=== PATIENT | male | born 1945 | race Caucasian/White ===

== ENCOUNTER → 2017-09-10 | Day surgery (SDC) | payer OTHER ==
[~2017-09-10] MED LIST: GLUC100013 PO; LACTATED RINGER'S 1000 ML INJ 1,000 ML ONE; MIDAZOLAM HCL 2 MG/2 ML VIAL ONE; MORPHINE SULFATE 2 MG/ML SYRINGE ONE; ONDANSETRON HCL 4 MG/2 ML VIAL IV PUSH ONE; PROPOFOL 200 MG/20 ML AMP IV ONE; VITA10007 PO; ceFAZolin INJ 1,000 MG VIAL ONE
--- NOTE | 2017-09-10 11:19 | TN ---
cc: Ronni Peralta MD DATE OF SURGERY: 09/10/2017 DATE OF SURGERY: 09/10/2017 ATTENDING PHYSICIAN/SURGEON: MD Kathryn PREOPERATIVE DIAGNOSIS: Left knee torn medial meniscus. POSTOPERATIVE DIAGNOSIS: Left knee torn medial meniscus. PROCEDURE PERFORMED: Left knee arthroscopy, partial medial meniscectomy. PROCEDURE IN DETAIL: Informed consent was obtained. The patient was taken to the operating room and placed in the supine position on the operating table, administered general anesthesia by Dr. Leal of the Anesthesia Department. The patient had been given 1 gram of Ancef prior to the initiation of the operative procedure. The left leg had a tourniquet applied to the thigh and was prepped with Betadine soap followed by Betadine paint. Draping commenced with sterile towels, sterile U-drape, stockinette was placed over the foot and calf, an extremity drape was applied, Coban was applied over the stockinette. The leg was elevated. The table was elevated to its maximum height. A timeout was held and confirmed. At that time, the tourniquet was inflated to 300 mmHg. The leg was allowed to flex over the side of the operating table. An 18-gauge spinal needle was placed in the region of the lateral infrapatellar portal. This region was infiltrated and 4 mL of 0.25% Marcaine with epinephrine. Infiltration was also performed into the medial infrapatellar portal and the transpatellar tendon portal. Small incisions were made with the 11 blade in the region of the lateral infrapatellar portal and the transpatellar tendon portal. Inflow cannula was placed in the transpatellar tendon portal. The arthroscopic cannula was placed in the lateral portal. Diagnostic arthroscopy commenced. The medial compartment was examined. Zone 3 of the medial meniscus in the anterior aspect appeared intact; however, there was fraying of the undersurface noted in zone 2. As the leg was brought into abduction and external rotation against a side post, degenerative tearing was seen all the way to the posterior horn where there was an undersurface tear. A medial portal was established. This area was probed and then the medial meniscus was debrided with the meniscal shaver and up-biting basket forceps to a stable rim. 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 At that time the scope was maneuvered over the intercondylar notch at the edge of the lateral compartment. The leg was placed in a figure-4 position. Lateral meniscus, lateral femoral condyle, lateral tibial plateau and popliteus tendon appeared intact. The leg was again flexed over the side of the operating table and the scope was placed in the intercondylar notch. Anterior and posterior cruciate ligaments were intact. The scope could not be passed in the posteromedial or posterolateral compartments. The scope was then placed in the suprapatellar pouch as the leg was extended on the operating table. There was debridement of the plica region performed. The undersurface of the patella and trochlear groove both had some mild chondromalacia changes. The patient had been complaining of pain over the lateral superior aspect of the knee. No specific abnormalities were seen with regard to plica bands. I did not see a significant bony osteophyte on the trochlea in this region. Debridement of some of the synovial tissue was performed. Debridement was also performed in the plica region; however, no specific pathologic plicas were seen at that time. The area was thoroughly irrigated and suctioned. All cannulas were removed. Each portal was closed with single 4-0 nylon interrupted stitch. Band-Aids, 4 x 4's, Sof-Rol, and Venkatesh wrap were applied to the patient's knee. The tourniquet was deflated. Total tourniquet time was 39 minutes. The patient tolerated the procedure well and was then taken to the recovery room in stable condition. At the completion of the procedure, sponge count, instrument count and needle counts were correct. Estimated blood loss was less than 10 mL. MD ARTEM Scott/KAMERON , 10:42 AM , 11:18 AM
== END | disposition home or self-care (01) ==
LOC: ESDC 08:18
PROVIDERS: ATTEND Orthopaedic Surgery
DX: S83.242A Other tear of medial meniscus, current injury, left knee, initial encounter (principal)
CPT/HCPCS: 01400; 29881; J0690; J2250; J2270; J2405; J3010; J7120